=== PATIENT | female | born 1970 | race Caucasian/White ===

== ENCOUNTER 2018-10-12 09:32 | Observation (INO) | payer MEDICAID, OTHER ==
[2018-10-12] VITALS (13 sets, daily range): BP systolic 116–131; BP diastolic 67–79
[~2018-10-12] VITALS: Ht 165.1 cm; Wt 89.8 kg
[~2018-10-12 09:32] MED LIST: AA/A14DR7 OT; ACE3 PO; AMO500 PO; AUG500 PO; CEFD125S21 PO; CEP500 PO; CYC10 PO; LOR5 PO; MOTRIN; MULTIVIT; PENI-22 PO; PREN-85 PO; [UNRECOGNIZED DRUG - CODE] PO
--- NOTE | 2018-10-12 09:34 | ER Report ---
History and Physical Time Seen By MD: 09:30 HPI/ROS CHIEF COMPLAINT: Headache, neck pain, nausea, flank pain HISTORY OF PRESENT ILLNESS: Patient is 47-year-old female here with complaints of the above for the past several days. Patient reports that symptoms are intermittent, she describes the neck pain as acute onset, radiating to the apex of her scalp, lower flank pain, nausea, vomiting, vague generalized abdominal pain. Patient denies other medical problems, denies taking medications aside from Benadryl which gave her minimal relief of symptoms. Patient reports that she doesn't follow regularly with a primary care provider. Patient is afebrile, hemodynamically stable at time of evaluation. REVIEW OF SYSTEMS: Constitutional: No fever, + chills. Eyes: No discharge. ENT: No sore throat. Cardiovascular: No chest pain, no palpitations. Respiratory: No cough, no shortness of breath. Gastrointestinal: + Generalized abdominal pain, lower flank pain, + intermittent nausea and vomiting. Genitourinary: No hematuria. Denies dysuria Musculoskeletal: No back pain. Skin: No rashes. Neurological: + [place] headache. Allergies: Coded Allergies: latex (Verified Allergy, Mild, 10/12/18) Home Meds Discontinued Reported Medications Penicillin V Potassium (Penicillin V Potassium) 250 Mg Tablet, 500 MG PO QID, 0 Refills TAKE ON EMPTY STOMACH 12/02/09 [Multivit] No Conflict Check, 0 Refills 12/02/09 Vits W-Ca,Fe,Fa(<1MG) () 1 Each Tablet, 1 EACH PO, 0 Refills 12/02/09 [Motrin] No Conflict Check, 0 Refills 03/06/09 Hx Substance Use Disorder: No Hx Alcohol Use: No Constitutional Vital Sign - Last 24 Hours 10/12/18 10/12/18 10/12/18 10/12/18 09:38 10:00 10:30 11:30 Temp 98.2 Pulse 105 84 83 Resp 51 B/P (MAP) 147/82 123/75 (91) 134/75 (94) 129/73 (91) Pulse Ox 97 93 93 O2 Delivery Room Air 10/12/18 10/12/18 12:00 12:30 Pulse 81 89 B/P (MAP) 120/66 (84) 126/74 (91) Pulse Ox 92 94 Physical Exam General Appearance: The patient is alert, has no immediate need for airway protection and no signs of toxicity. No acute distress Eyes: Pupils equal and round no pallor or injection. ENT, Mouth: Mucous membranes are moist. Respiratory: There are no retractions, lungs are clear to auscultation. Cardiovascular: Regular rate and rhythm. Gastrointestinal: Abdomen is soft and mild tender and tender on palpation of the right flank, no masses, bowel sounds normal. Neurological: No focal neurological deficits, alert and oriented, cranial nerves intact Skin: Warm and dry, no rashes. Musculoskeletal: Neck is supple non tender. Extremities are nontender, nonswollen and have full range of motion. DIFFERENTIAL DIAGNOSIS: After history and physical exam differential diagnosis was considered for abdominal pain including but not limited to appendicitis, cholecystitis, gastritis and urinary tract infection. Medical Decision Making Data Points Result Diagram: 10/12/18 0953 10/12/18 0953 Laboratory Hematology Test 10/12/18 09:53 White Blood Count 14.8 k/uL (4.5-11.0) H Red Blood Count 4.77 M/uL (4.17-5.56) Hemoglobin 9.1 g/dL (12.0-16.0) L Hematocrit 29.0 % (34.0-47.0) L Mean Corpuscular Volume 60.8 fL (80.0-96.0) L Mean Corpuscular Hemoglobin 19.0 pg (26.0-33.0) L Mean Corpuscular Hemoglobin Concent 31.2 g/dL (32.0-36.0) L Red Cell Distribution Width 18.8 % (11.5-14.5) H Platelet Count 311 K/uL (150-450) Mean Platelet Volume 9.0 fL (7.2-11.1) Neutrophils (%) (Auto) 81.3 % (39.4-72.5) H Lymphocytes (%) (Auto) 6.4 % (17.6-49.6) L Monocytes (%) (Auto) 12.0 % (4.1-12.4) Eosinophils (%) (Auto) 0.1 % (0.4-6.7) L Basophils (%) (Auto) 0.2 % (0.3-1.4) L Nucleated RBC Relative Count (auto) 0.2 /100WBC Neutrophils # (Auto) 12.0 K/uL (2.0-7.4) H Lymphocytes # (Auto) 1.0 K/uL (1.3-3.6) L Monocytes # (Auto) 1.8 K/uL (0.3-1.0) H Eosinophils # (Auto) 0.0 K/uL (0.0-0.5) Basophils # (Auto) 0.0 K/uL (0.0-0.1) Nucleated RBC Absolute Count (auto) 0.03 K/uL Peripheral Blood Smear Yes Y/N Chemistry Test 10/12/18 09:53 10/12/18 11:20 Sodium Level 137 mmol/L (137-145) Potassium Level 4.0 mmol/L (3.5-5.0) Chloride Level 104 mmol/L (98-107) Carbon Dioxide Level 21 mmol/L (22-31) Blood Urea Nitrogen 10 mg/dl (7-18) Creatinine 1.30 mg/dl (0.52-1.04) Glomerular Filtration Rate Calc 43.9 Random Glucose 127 mg/dl (75-110) Calcium Level 8.9 mg/dl (8.4-10.2) Total Bilirubin 1.8 mg/dl (0.2-1.3) Aspartate Amino Transf (AST/SGOT) 17 U/L (0-35) Alanine Aminotransferase (ALT/SGPT) 30 U/L (0-56) Alkaline Phosphatase 99 U/L (0-126) C-Reactive Protein 16.7 mg/dl (<1.0) Total Protein 7.7 g/dl (6.3-8.2) Albumin 4.1 g/dl (3.5-5.0) Lipase 53 U/L (23-300) Human Chorionic Gonadotropin, Qual Negative (NEGATIVE) Lactate 0.8 mmol/L (0.7-2.1) Urinalysis Test 10/12/18 09:33 Urine Color Melanie Urine Clarity Turbid Urine pH 6.0 pH (4.8-9.5) Urine Specific [place] 1.016 Urine Protein 100 mg/dL (NEGATIVE) Urine Glucose (UA) Negative mg/dL (NEGATIVE) Urine Ketones Trace mg/dL (NEGATIVE) Urine Blood Moderate (NEGATIVE) Urine Nitrite Negative (NEGATIVE) Urine Bilirubin Negative (NEGATIVE) Urine Urobilinogen Negative mg/dL (0.2-1.9) Urine Leukocyte Esterase Moderate (NEGATIVE) Urine RBC 56 /HPF (0-2/HPF) Urine WBC 3068 /HPF (0-5/HPF) Urine WBC Clumps Many /HPF Urine Squamous Epithelial Cells Many /LPF (</=FEW) Urine Amorphous Crystals Few /LPF Urine Bacteria Moderate /HPF (NONE-FEW) Urine Mucus Few /HPF (NONE-FEW) EKG/Imaging Imaging Please see official radiology report. ED Course/Re-evaluation ED Course Patient is a 47-year-old female here with complaints of lower abdominal pain, flank pain, headache, neck pain found to have a urinary tract infection, culture sent. Ceftriaxone and fluids administered. Patient was also noted to have a leukocytosis. CT imaging of the head, C-spine were completed due to the patient's complaints of neck pain with radiation into the scalp. CT imaging of the abdomen and pelvis were completed due to complaints of vague abdominal pain that is generalized. Obstructing proximal left ureteral stone with hydronephrosis was identified in the setting of a urinary tract infection. I discussed the patient with Dr. Fisher with urology who accepted the patient. Last meal was last night. Patient has been sipping on juice throughout the course of the morning. Patient was stable at time of admission. Lactate was added on. Of note, blood cultures were collected after administration of ceftriaxone when the urinalysis, leukocytosis, decreased renal function were discovered. Decision to Disposition Date: Oct 12, 2018 Decision to Disposition Time: 11:16 Depart Departure Latest Vital Signs Vital Signs Date Time Temp Pulse Resp B/P (MAP) Pulse Ox O2 Delivery O2 Flow Rate FiO2 10/12/18 12:30 89 126/74 (91) 94 10/12/18 09:38 98.2 51 Room Air Impression: Primary Impression: Ureterolithiasis Additional Impressions: Hydronephrosis Urinary tract infection Condition: Condition Unchanged Disposition: Admitted from ER Referrals: LOLIS RÍOS (PCP) New Scripts No Active Prescriptions or Reported Meds Problem Qualifiers MARYAM LISA DO Oct 12, 2018 09:34
[2018-10-12] MEDS ORDERED: NS(*) 0.9% 1000 ML BAG 1,000 ML IV ONE (09:46)
[2018-10-12] MEDS ORDERED: KETOROLAC 30 MG/ML VIAL IVP ONE (09:50)
[2018-10-12] MEDS ORDERED: ONDANSETRON 4 MG/2 ML VIAL IVP ONE (09:50)
[2018-10-12] MEDS ORDERED: IOPAMIDOL 76% 100 ML INFUS BTL 100 ML ONE (09:58)
[2018-10-12 10:21] LABS: PLATELET COUNT, AUTOMATED 311 K/uL (150-450)
[2018-10-12] MEDS ORDERED: cefTRIAXone 1 GM VIAL IVP ONE (10:30)
--- NOTE | 2018-10-12 11:32 | RADIOLOGY IMAGING REPORT ---
FACILITY: [facility] - [place] PATIENT NAME: Priscila Santos : 1970 MR: [id number] V: [id number] EXAM DATE: ORDERING PHYSICIAN: MARYAM LISA TECHNOLOGIST: Location: [facility] [place] Patient: Priscila Santos : 1970 Visit/Account:[id number] Date of Sevice: 10/12/2018 CT Head without contrast and CT Cervical spine: Indication: Headaches Comparison: None available Technique: CT head: Axial CT images were obtained through the brain from the skull base to the verte x without administration of IV contrast. Reformatted coronal and sagittal images were also obtained. Technique: CT cervical spine: Axial CT imaging of the cervical spine was performed. 2-D sagittal and coronal CT reformats were also obtained. One of the following dose optimization techniques was utilized in the performance of this exam: autom ated exposure control; adjustment of the mA and/or kV according to the patient's size; or use of an i terative reconstruction technique. Specific details can be referenced in the facility's radiology CT exam operational policy. FINDINGS: CT head: Brain volume: Normal. Ventricles: Negative. Acute ischemic changes: None. Hemorrhage: None. Masses / edema: None. Dunn-white: Negative. White matter: Negative. Vessels: Negative. Extra-axial: Negative. Calvarium / skull base: Negative. Visualized sinuses / orbits: Negative. CT cervical spine: No cervical spine fracture or acute subluxation is identified.. The prevertebral soft tissues appear unremarkable. The vertebral body heights are well maintained. Disc spaces appear unremarkable. IMPRESSION: 1. No acute intracranial abnormality. 2. No acute osseous or acute alignment abnormality of the cervical spine. 3. Report Dictated By: Manuel Candelaria at 10/12/2018 11:22 AM Report E-Signed By: Manuel Candelaria at 10/12/2018 11:25 AM WSN:[id number]
--- NOTE | 2018-10-12 11:33 | RADIOLOGY IMAGING REPORT ---
FACILITY: [facility] - [place] PATIENT NAME: Priscila Santos : 1970 MR: [id number] V: [id number] EXAM DATE: ORDERING PHYSICIAN: MARYAM LISA TECHNOLOGIST: Location: [facility] - [place] Patient: Priscila Santos : 1970 Visit/Account:[id number] Date of Sevice: 10/12/2018 CT Head without contrast and CT Cervical spine: Indication: Headaches Comparison: None available Technique: CT head: Axial CT images were obtained through the brain from the skull base to the verte x without administration of IV contrast. Reformatted coronal and sagittal images were also obtained. Technique: CT cervical spine: Axial CT imaging of the cervical spine was performed. 2-D sagittal and coronal CT reformats were also obtained. One of the following dose optimization techniques was utilized in the performance of this exam: autom ated exposure control; adjustment of the mA and/or kV according to the patient's size; or use of an i terative reconstruction technique. Specific details can be referenced in the facility's radiology CT exam operational policy. FINDINGS: CT head: Brain volume: Normal. Ventricles: Negative. Acute ischemic changes: None. Hemorrhage: None. Masses / edema: None. Dunn-white: Negative. White matter: Negative. Vessels: Negative. Extra-axial: Negative. Calvarium / skull base: Negative. Visualized sinuses / orbits: Negative. CT cervical spine: No cervical spine fracture or acute subluxation is identified.. The prevertebral soft tissues appear unremarkable. The vertebral body heights are well maintained. Disc spaces appear unremarkable. IMPRESSION: 1. No acute intracranial abnormality. 2. No acute osseous or acute alignment abnormality of the cervical spine. 3. Report Dictated By: Manuel Candelaria at 10/12/2018 11:22 AM Report E-Signed By: Manuel Candelaria at 10/12/2018 11:25 AM WSN:[id number]
--- NOTE | 2018-10-12 11:46 | RADIOLOGY IMAGING REPORT ---
FACILITY: [facility] PATIENT NAME: Priscila Santos : 1970 MR: [id number] V: [id number] EXAM DATE: ORDERING PHYSICIAN: MARYAM LISA TECHNOLOGIST: Location: [facility] Patient: Priscila Santos : 1970 Visit/Account:[id number] Date of Sevice: 10/12/2018 CT ABDOMEN PELVIS W/ CON HISTORY: , Left flank pain TECHNIQUE: CT abdomen and pelvis with intravenous contrast. One of the following dose optimization techniques was utilized in the performance of this exam: autom ated exposure control; adjustment of the mA and/or kV according to patient size; or use of iterative reconstruction technique. Specific details can be referenced in the facility?s radiology CT exam oper ational policy. CONTRAST: 75 mL Isovue-370 COMPARISON: None. FINDINGS: Visualized lung bases: There is mild bibasilar atelectasis. Hepatobiliary: Negative. Spleen: Negative. Adrenals: Negative. Pancreas: Negative. Kidneys/: The left kidney is enlarged with diffuse perinephric fat stranding and moderate to sever e hydronephrosis present secondary to an obstructing stone at the UPJ measuring 1.6 x 0.8 cm. There i s a significantly delayed nephrogram when compared to the right. There are multiple enlarged lymph no miguelito seen adjacent to the left kidney measuring upwards of 2 cm likely reactive to the inflammation. M ild to moderate perinephric fat stranding is present. There is no evidence of calyceal rupture. There is a nonobstructing left lower pole stone measuring 6 mm. On the right there is a nonobstructin g 6 mm lower pole stone. The right kidney demonstrates normal uptake of contrast. There is a right ovarian cyst measuring 2.2 cm. The endometrial canal is fluid-filled. GI: Negative. Vessels/spaces/nodes: Negative. Bones/soft tissues: Negative. IMPRESSION: 1. 1.6 x 0.8 cm obstructing left UPJ stone with moderate to severe hydronephrosis, mild renal enlarge ment and perinephric fat stranding with multiple reactive lymph nodes. There is a delayed nephrogram consistent with impaired renal function. 2. Bilateral nonobstructive nephrolithiasis as described 3. Fluid-filled endometrial canal and small right ovarian cyst. Recommend nonemergent pelvic ultrasou nd if clinically indicated Report Dictated By: Manuel Candelaria at 10/12/2018 11:25 AM Report E-Signed By: Manuel Candelaria at 10/12/2018 11:37 AM WSN:[id number]
[2018-10-12] MEDS ORDERED: FAMOTIDINE(*) 20MG/50ML PREMIX 50 ML IVPB ONE (12:40)
[2018-10-12] MEDS ORDERED: NORMOSOL R SOLN(*) 1000 ML BAG 1,000 ML IV ONE (12:40)
[2018-10-12] MEDS ORDERED: fentaNYL CITR 100 MCG/2 ML AMP ONE (12:49)
[2018-10-12] MEDS ORDERED: BELLADONNA ALK/OPIUM 60MG SUPP PR ONE (12:59)
[2018-10-12] MEDS ORDERED: LEVOFLOXACIN/D5W*500 MG/100 ML 100 ML IVPB ONE (13:00)
[2018-10-12] MEDS ORDERED: IOPAMIDOL 76% 50 ML INFUS BTL 0 ML ONE (13:00)
[2018-10-12] MEDS ORDERED: IOPAMIDOL 20 ML VIAL IT ONE (13:02)
[2018-10-12] MEDS ORDERED: NS(*) 0.9% 1000 ML BAG 1,000 ML IV PRN (14:10)
[2018-10-12] MEDS ORDERED: PHENAZOPYRIDINE 200 MG TAB PO PRN (14:10)
[2018-10-12] MEDS ORDERED: ACETAMINOPHEN 325 MG TAB PO PRN (14:10)
[2018-10-12] MEDS ORDERED: MAG HYD/AL HYD/SIMETH 30ML UDC PO PRN (14:10)
[2018-10-12] MEDS ORDERED: ZOLPIDEM TARTRATE 5 MG TAB PO PRN (14:10)
[2018-10-12] MEDS ORDERED: IBUPROFEN 600 MG TAB PO PRN (14:15)
[2018-10-12] MEDS ORDERED: ONDANSETRON 4 MG/2 ML VIAL IVP PRN (14:15)
[2018-10-12] MEDS ORDERED: APAP/HYDROCODONE 325/5 TAB PO PRN (14:20)
--- NOTE | 2018-10-12 14:23 | RADIOLOGY IMAGING REPORT ---
FACILITY: [facility] PATIENT NAME: Priscila Santos : 1970 MR: [id number] V: [id number] EXAM DATE: ORDERING PHYSICIAN: ERVIN REGAN TECHNOLOGIST: Location: [facility] - [place] Patient: Priscila Santos : 1970 Visit/Account:[id number] Date of Sevice: 10/12/2018 Exam: RETROGRADE PYELOGRAM Indication: LEFT KIDNEY STONE, RAD Comparison: CT 10/12/2018 Findings: Fluoroscopy is provided for left retrograde ureteroscopy and stent placement. Images show l arge stone at the level of the UPJ with subsequent placement of ureteral stent. Fluoroscopy time 0.21 minutes DOSE: Air kerma was 14.1 mGy. IMPRESSION: Procedural fluoroscopy Report Dictated By: Manuel Candelaria at 10/12/2018 2:13 PM Report E-Signed By: Manuel Candelaria at 10/12/2018 2:14 PM WSN:[id number]
[2018-10-12] MEDS: DOCUSATE SODIUM 100 MG CAP PO SCH (20:40)
[2018-10-12] MEDS ORDERED: BELLADONNA ALK/OPIUM 60MG SUPP PR PRN (21:00)
--- NOTE | 2018-10-12 22:39 | HISTORY AND PHYSICAL ---
DATE OF ADMISSION: October 12, 2018 CHIEF COMPLAINT Kidney stone. HISTORY OF PRESENT ILLNESS Patient is a 47-year-old white female who presented to the emergency room with a several-day history of vague general abdominal pains with left flank pain and subjective fever/chills. She was evaluated with a CT scan, which revealed a large obstructing stone at the left UPJ measuring 14 x 8 x 13 mm. She also was noted to have a lower-pole stone on the left kidney measuring 5 x 3, and a lower-pole stone on the right kidney measuring 7 x 5. She had a significant amount of hydronephrosis on that side with perirenal diffuse fat stranding, and a decreased nephrogram consistent with significant obstruction. She also had multiple enlarged lymph nodes adjacent to the left kidney, measuring up to 2 cm, consistent with reactive inflammation. The patient was also noted to have an elevated creatinine of 1.3, with an elevated white blood cell count of 14.8 with a left shift. Given the significant size and obstructing nature of the stone, with possible early infection, she is now being admitted for urgent left renal decompression with stent placement. Urine culture has been sent and is pending. PAST MEDICAL HISTORY None. PAST SURGICAL HISTORY 1. Dilatation and curettage. 2. C-sections. CURRENT MEDICATIONS None. ALLERGIES LATEX. REVIEW OF SYSTEMS Patient denies chest pain, productive cough, bleeding disorder, liver disease, or dyspnea on exertion. Her last menstrual period was three weeks ago. PHYSICAL EXAMINATION GENERAL: Patient is a well-developed, well-nourished female in no acute distress. HEENT: Normocephalic, atraumatic. CHEST: Clear to auscultation bilaterally. CARDIOVASCULAR: Regular rate and rhythm. ABDOMEN: Soft, nontender. No masses are palpated. GENITOURINARY: Deferred to the OR. EXTREMITIES: Without clubbing, cyanosis, or edema. NEUROLOGIC: Nonfocal. IMPRESSION A 47-year-old white female with a large obstructing left ureteropelvic junction stone with significant hydronephrosis and reactive changes. Her white count is elevated. Her urinalysis shows many white blood cell clumps and moderate bacteria, most concerning for early infection. PLAN We will admit the patient to the hospital and perform urgent decompression of her system with a stent placement, and start her on broad-spectrum antibiotics pending her urine culture results. M[facility] ST[facility]ILDREN'S HOSPITALCari
--- NOTE | 2018-10-13 02:00 | OPERATIVE REPORT 1 ---
EVENT DATE: October 12, 2018 SURGEON: Osito Fisher MD ANESTHESIOLOGIST: Mane Amor DO ANESTHESIA: General. PREOPERATIVE DIAGNOSIS Left obstructing ureteropelvic junction stone with urinary tract infection. POSTOPERATIVE DIAGNOSIS Left obstructing ureteropelvic junction stone with urinary tract infection. PROCEDURE PERFORMED 1. Cystoscopy. 2. Left retrograde pyelogram. 3. Left internal double-J ureteral stent placement. ESTIMATED BLOOD LOSS Minimal. INTRAVENOUS FLUIDS Crystalloids. DRAINS 6-Ghanaian x 24 cm Contour stent on left. SPECIMENS Urine sent for culture and Gram stain after stent placement. FINDINGS Grossly purulent material emanating from left ureteral orifice after stent placement. COMPLICATIONS None. CONDITION Patient taken to recovery room awake and in stable condition. STATEMENT OF MEDICAL NECESSITY Patient is a 47-year-old white female who presented to the emergency room with several-day history of malaise and left flank pain. She was found to have a 14 x 8 x 13 mm stone obstructing her left UPJ, with significant hydronephrosis with surrounding perinephric changes and adenopathy. She also had an elevated white count of 14.8 with a left shift, and a urinalysis consistent with infection. She is now being brought to the operating room for planned urgent decompression. DESCRIPTION OF PROCEDURE Patient was brought to the operating room, and after general anesthetic was obtained, she was placed in the dorsal lithotomy position and prepped and draped in the usual sterile manner. Anesthetic cystoscopy was performed with the 21- [place]ian rigid Herrmann sheath and a 30-degree lens. She had a normal-appearing urethra and bladder mucosa. There were no bladder tumors or other lesions. She had slit-like ureteral orifices on their respective francesca-trigones. The left ureteral orifice was cannulated with a 6-Ghanaian open-ended Axxess catheter, which was advanced up to the proximal ureter under the aid of fluoroscopic imaging. At this point, a retrograde pyelogram was performed with a dilute mixture of contrast and lubricating surgical jelly. Real-time imaging showed the calcification to be at the UPJ. A small amount of contrast did get by the stone into the dilated renal pelvis. There was no evidence of extravasation. At this point, the Axxess catheter was advanced up to the level of the stone, and a 0.035 wire was advanced into the lumen of the Axxess catheter and negotiated past the stone to an upper pole eris. The Axxess catheter was removed. At this point, a large amount of purulent material emanated from the left ureteral orifice next to the wire. The wire was then used to place a 6- Ghanaian x 24 cm Contour stent. The wire was removed. She was noted to have good curling in the renal pelvis by fluoroscopy and good curling in the bladder by direct vision. A Yanes catheter was placed and placed to gravity drainage, as well as a B and O suppository given prior to the conclusion of the case. The patient was taken to the recovery area in stable condition. PLAN We will admit the patient for intravenous hydration and broad-spectrum antibiotic coverage pending urine culture results. CANDACE
[2018-10-13 03:42] VITALS: BP 116/80
[2018-10-13 05:36] LABS: PLATELET COUNT, AUTOMATED 351 K/uL (150-450)
[2018-10-13 07:11] VITALS: BP 120/68
[2018-10-13] MEDS: DOCUSATE SODIUM 100 MG CAP PO SCH (08:23)
[2018-10-13] MEDS ORDERED: OXYBUTYNIN CHL XL 5 MG TABCR PO SCH (09:00)
--- NOTE | 2018-10-13 09:09 | Antimicrobial Stewardship ---
Antimicrobial Time Out Antimicrobial Stewardship MD Service: Other (Dr. Fisher, urologist.) Indications: UTI Antimicrobial Used Levaquin oral. Start Date: Oct 12, 2018 Culture Results: Yes (pending) Comments Comments Treat for at least 5 days. YECENIA YOU Oct 13, 2018 09:09
[2018-10-13] MEDS ORDERED: OXYB15TA14 PO (10:50)
[2018-10-13] MEDS ORDERED: PHEN200T32 PO (10:51)
[2018-10-13] MEDS ORDERED: HYDR-653 PO (10:51)
[2018-10-13] MEDS ORDERED: DOCU-416 PO (10:52)
[2018-10-13] MEDS ORDERED: IBUP600T22 PO (10:52)
[2018-10-13] MEDS ORDERED: LEVO-85 PO (10:53)
[2018-10-13] MEDS ORDERED: IRON1TAB34 PO (11:42)
--- NOTE | 2018-10-13 11:44 | Miscellaneous Provider Note ---
Miscellaneous Provider Note Note TIBC normal, Serum Iron low. Will have her start an iron supplement and follow up with her PCP for management. Copies to: LOLIS RÍOS ; ANDRIA FISCHER Oct 13, 2018 11:44
--- NOTE | 2018-10-13 11:56 | Hospitalist Consultation ---
History of Present Illness Requesting Physician Dr. Fisher Reason for Consult Anemia Chief Complaint Anemia post kidney stone removal. History of Present Illness Status Post Kidney stone removal. 47 y/o female with no complaints post surgery. Consulted for anemia workup. History Problems: (1) Urinary tract infection Status: Acute Home Meds Active Scripts Iron Ag,Ps/C/Fa6/B12/Zn/SA/Sto (Niferex Tablet) 150MG-60-1 Tablet, 150 MG PO BIDBS, #30 CAP Prov:ANDRIA FISCHER R 10/13/18 Reported Medications Levofloxacin 500 Mg Tab (LEVAQUIN 500 MG TAB) 500 Mg Tablet, 500 MG PO QDAY, #12 TAB 10/13/18 Ibuprofen (IBUPROFEN) 600 Mg Tablet, 1 TAB PO Q6H PRN for PAIN, #20 TAB 10/13/18 Docusate Sodium (COLACE) 100 Mg Capsule, 100 MG PO BID, #30 CAPSULE 10/13/18 Hydrocodone Bit/Acetaminophen (NORCO 5-325 TABLET) 1 Each Tablet, 1-2 EACH PO Q6H PRN for PAIN, #20 TAB 10/13/18 Phenazopyridine Hcl (PHENAZOPYRIDINE HCL) 200 Mg Tablet, 200 MG PO TID PRN for PAIN, #30 TAB 10/13/18 Oxybutynin Chloride (OXYBUTYNIN CHLORIDE ER) 15 Mg Tab.er.24, 15 MG PO QDAY PRN for SPASMS, #20 TAB.SA 10/13/18 Discontinued Reported Medications Penicillin V Potassium (Penicillin V Potassium) 250 Mg Tablet, 500 MG PO QID, 0 Refills TAKE ON EMPTY STOMACH 12/02/09 [Multivit] No Conflict Check, 0 Refills 12/02/09 Vits W-Ca,Fe,Fa(<1MG) () 1 Each Tablet, 1 EACH PO, 0 Refills 12/02/09 [Motrin] No Conflict Check, 0 Refills 03/06/09 Allergies: Coded Allergies: latex (Verified Allergy, Mild, 10/12/18) Patient History: Diabetes mellitus MOTHER FH: celiac disease BROTHER OR SISTER FH: scoliosis CHILD FH: total abdominal hysterectomy and bilateral salpingo-oophorectomy MOTHER FHx: allergies BROTHER OR SISTER Hypertension MOTHER No significant family history FATHER CHILD CHILD CHILD CHILD CHILD CHILD CHILD CHILD Hx Smoking: No Smoking Status: Never Smoker Exposure to Second Hand Smoke?: Yes Caffeine Intake: Coffee, Tea Caffeine/Cups Per Day: 1C coffee, 2C tea daily Hx Alcohol Use: No Hx Substance Use Disorder: No Review of Systems All Systems Reviewed/Normal: Yes Exam Vital Signs Vital Signs Date Time Temp Pulse Resp B/P (MAP) Pulse Ox O2 Delivery O2 Flow Rate FiO2 10/13/18 08:25 93 Room Air 10/13/18 07:11 97.8 54 24 120/68 (85) General Appearance: Alert, Awake, No Acute Distress Neuro: No Gross deficits Cardiovascular: Regular Rate and Rhythm Respiratory: No Respiratory Distress GI: Abd Soft and Non-Tender Psych: Alert & Oriented X3, Appropriate Mood & Affect Medical Decision Making Data Points Result Diagram: 10/13/1851410/13/18514 Assessment and Plan Problems: (1) Status post cystoscopy Assessment & Plan: Cystoscopy per Dr. Fisher (2) ANEMIA, UNSPECIFIED Assessment & Plan: Anemia noted post-procedure. She states she has had mild anemia in the past, but has never had a full work up done. Will order TIBC and Serum Iron. Will manage with Iron supplement if needed. Will have her follow up with her PCP and repeat outpatient CBC. Copies to: LOLIS RÍOS; ERVIN FISHER MD ; Venous Thromboembolism Antithrombotics Is Pt On Any Antithrombotics?: No Exam Sepsis Risk: No Definite Risk ANDRIA FISCHER Oct 13, 2018 11:56
[2018-10-13] MEDS ORDERED: LEVOFLOXACIN 500 MG TAB PO SCH (13:00)
== END 2018-10-13 10:47 | disposition home or self-care (01) ==
LOC: ER 09:36 → OR 12:35 → MED 14:50
PROVIDERS: ADMIT Urology; ATTEND Urology
DX: N13.6 Pyonephrosis (principal); N39.0 Urinary tract infection, site not specified; R79.89 Other specified abnormal findings of blood chemistry
CPT/HCPCS: 36415; 52005; 52332; 70450; 72125; 74177; 74420; 81001; 83540; 83550; 83605; 83690; 84703; 85025; 86140; 87040; 87088; 87205; 96361; 96365; 96375; 99284; C1758; C2617; G0378; J0696; J1885; J1956; J2405; J3010; J7030; Q9966; Q9967; 82040; 82247; 82310; 82374; 82435; 82565; 82947; 84075; 84132; 84155; 84295; 84450; 84460; 84520

== ENCOUNTER → 2018-10-17 | Outpatient (CLI) | payer OTHER ==
[~2018-10-17] MED LIST changes: +DOCU-416 PO; +HYDR-653 PO; +IBUP600T22 PO; +IRON1TAB34 PO; +LEVO-85 PO; +OXYB15TA14 PO; +PHEN200T32 PO
[2018-10-17 15:32] LABS: PLATELET COUNT, AUTOMATED 422 K/uL (150-450)
== END ==
LOC: LAB 15:11
PROVIDERS: ATTEND Nurse Practitioner Psychiatric/Mental Health
DX: D64.9 Anemia, unspecified (principal)
CPT/HCPCS: 36415; 85025

== ENCOUNTER → 2018-10-30 | Outpatient (CLI) | payer OTHER ==
--- NOTE | 2018-10-29 18:08 | HISTORY AND PHYSICAL ---
DATE OF ADMISSION: November 03, 2018 CHIEF COMPLAINT Kidney stones. HISTORY OF PRESENT ILLNESS Patient is a 47-year-old white female who originally presented to the Emergency Room in early October with a several-day history of vague abdominal pain. She was found to have a 14 x 8 x 13 mm obstructing stone at her left UPJ. In addition, she was noted to have a 5 x 3 left lower pole stone and a 5 x 7 right lower pole stone. At that time, she was taken urgently to the operating room and underwent left ureteral stent placement with return of a large amount of purulent material from that kidney. She has subsequently been treated with antibiotics and is now being returned to the operating room for definitive stone treatment. PAST MEDICAL HISTORY None. PAST SURGICAL HISTORY 1. D and C. 2. . 3. Left stent placement. CURRENT MEDICATIONS None. ALLERGIES LATEX. REVIEW OF SYSTEMS Patient denies chest pain, shortness of breath, productive cough, nausea, vomiting, fever, chills, or bleeding disorder. FAMILY HISTORY Noncontributory. PHYSICAL EXAMINATION GENERAL: Patient is a well-developed, well-nourished white female in no acute distress. HEENT: Normocephalic, atraumatic. CHEST: Clear to auscultation bilaterally. CARDIOVASCULAR: Regular rate and rhythm. ABDOMEN: Soft, nontender. No masses are palpated. GENITOURINARY: Deferred to the OR. EXTREMITIES: Without clubbing, cyanosis, or edema. NEUROLOGIC: Nonfocal. IMPRESSION A 47-year-old white female with a history of obstructing left ureteropelvic junction stone, now status post stent placement and appropriate antibiotic treatment. PLAN We will perform left extracorporeal shock wave lithotripsy with possible ureteroscopy and stent exchange as indicated. [id number]
[~2018-10-30] VITALS: Ht 165.1 cm; Wt 89.8 kg
[~2018-10-30] MED LIST changes: +FAMOTIDINE 20 MG TAB PO ONE; +LIDOCAINE/SOD BICARB 8.4% SYR ID ONE; +MIDAZOLAM 2 MG/2 ML VIAL IVP PRN; +NORMOSOL R SOLN(*) 1000 ML BAG 1,000 ML IV PRN; +ceFAZolin(*) 2GM/D5W 50ML 50 ML IVPB ONE
[2018-10-30 16:37] LABS: PLATELET COUNT, AUTOMATED 361 K/uL (150-450)
[2018-10-30 17:00] LABS: INR 0.98
== END ==
LOC: LAB 08:00 → EDSTATUS 11-03 07:30
PROVIDERS: ATTEND Urology
DX: N13.0 Hydronephrosis with ureteropelvic junction obstruction (principal)
CPT/HCPCS: 36415; 81001; 82040; 82247; 82310; 82374; 82435; 82565; 82947; 84075; 84132; 84155; 84295; 84450; 84460; 84520; 85025; 85610; 85730; 87088